=== PATIENT | male | born 1945 | race African-American/Black ===

== ENCOUNTER 2016-06-25 13:03 | Emergency (ER) | payer MEDICARE, MEDICAID ==
[~2016-06-25] VITALS: Ht 180.3 cm; Wt 86.0 kg
[~2016-06-25 13:03] MED LIST: ASPIRIN PO
[2016-06-25] MEDS ORDERED: KETOROLAC 60MG/2ML VIAL IM ONE (18:45)
[2016-06-25 19:13] VITALS: BP 146/79
== END 2016-06-25 19:14 | disposition home or self-care (01) ==
LOC: ER 17:46
DX: M54.5 Low back pain (principal); Z86.73 Personal history of transient ischemic attack (TIA), and cerebral infarction without residual deficits
CPT/HCPCS: 72100; 96372; 99284; J1885

== ENCOUNTER 2017-01-17 15:15 | Emergency (ER) | payer MEDICARE, MEDICAID ==
[~2017-01-17] VITALS: Ht 180.3 cm; Wt 80.0 kg
[2017-01-17 17:03] LABS: *AMPHETAMINES SCREEN URINE NEGATIVE (NEGATIVE); *BARBITURATES SCREEN URINE NEGATIVE (NEGATIVE); *BENZODIAZEPINES SCREEN URINE NEGATIVE (NEGATIVE); *COCAINE SCREEN URINE NEGATIVE (NEGATIVE); CANNABINOID URINE SCREEN NEGATIVE (NEGATIVE); METHADONE URINE SCREEN NEGATIVE (NEGATIVE); OPIATES URINE SCREEN NEGATIVE (NEGATIVE); PHENCYCLIDINE URINE SCREEN NEGATIVE (NEGATIVE)
[2017-01-17 17:41] LABS: BASOPHILS % 0.6 % (0.0-2.0); EOSINOPHILS % 1.4 % (0.0-5.0); HEMATOCRIT. 32.5 % (42.0-52.0); HEMOGLOBIN. 10.8 g/dL (14.0-18.0); LYMPHOCYTES % 23.3 % (20.0-50.0); MEAN CORPUSCULAR HEMOGLOBIN 27.4 pg (28.0-32.0); MEAN CORPUSCULAR VOLUME 82.5 fL (80.0-94.0); MEAN PLATELET VOLUME 8.2 fl (7.4-10.4); NEUTROPHILS % 65.7 % (40.0-76.0); PLATELET 180 x1000/uL (130-400); RED BLOOD CELL COUNT 3.94 mill/uL (4.7-6.1); RED CELL DISTRIBUTION WIDTH 15.5 % (11.6-14.6)
[2017-01-17 17:52] LABS: INR 1.1; PARTIAL THROMBOPLASTIN TIME 27.1 sec (23.4-31.0); PROTHROMBIN TIME 11.4 sec (9.4-11.6)
[2017-01-17 17:53] LABS: CARBON DIOXIDE 29 mEq/L (21-32); CHLORIDE 104 mEq/L (98-107); ETHANOL BLOOD < 10 mg/dL
[2017-01-17 17:58] LABS: TROPONIN I < 0.02 ng/mL (0.00-0.04)
[2017-01-17 20:15] VITALS: BP 130/80
== END 2017-01-17 20:27 | disposition home or self-care (01) ==
LOC: ER 15:33
DX: R53.1 Weakness (principal); R09.89 Other specified symptoms and signs involving the circulatory and respiratory systems; R52 Pain, unspecified; I10 Essential (primary) hypertension; I69.354 Hemiplegia and hemiparesis following cerebral infarction affecting left non-dominant side; Z79.82 Long term (current) use of aspirin
CPT/HCPCS: 36415; 70450; 71010; 80053; 80305; 83605; 84484; 85025; 85610; 85730; 87040; 93005; 99285; G0482